=== PATIENT | female | born 1950 | race Two or more races ===

== ENCOUNTER 2017-01-26 08:48 | Day surgery (SDC) | payer OTHER, MEDICARE ==
[~2017-01-26] VITALS: Ht 160 cm; Wt 79.4 kg
[~2017-01-26 08:48] MED LIST: ACETYLCHOLINE CHLORIDE 1:100 20 MG/2 ML INTRAOCULAR KIT. ONE; AMLO5TAB2 PO; ASPI-630 PO; ASPI325T8 PO; BALANCED SALT IRRIG OPHTH SOLN 15 ML BOTTLE. ONE; CARV6.25 PO; CHONDROIT-SOD-HYALURONATE KIT. ONE; CIPROFLOXACIN 0.3% OPHTH SOLUTION 5ML BOTTLE. OS ONE; CLOP75TA57 PO; CRESTOR10 MG PO; DEXAMETHASONE SOD PHOS 4 MG/ML VIAL ONE; FURO40TA4 PO; GENTAMICIN SULFATE 80 MG/2 ML VIAL. ONE; GLYB5TAB3 PO; HYDR-965 PO; INSU100C SQ; INSU100I32 SQ; INSU100V13 SQ; INSU100V31 SQ; IV RINGERS,LACTATED 1000ML 1,000 ML IV SCH; LIDOCAINE 2% JELLY 6ML IN APPLICATOR. MM PRN; NEO/POLYMYX/DEXAMETH OPHTH OINTMENT 3.5GM TUBE. ONE; NITR0.4T SL; POTA20TA82 PO; PROPARACAINE 0.5% OPHTH SOLUTION 15ML BOTTLE. OS ONE
[2017-01-26] MEDS: PHENYLEPHRINE 2.5% OPHTH SOLUTION 2ML BOTTLE. OS SCH ×3 (09:15→09:30)
[2017-01-26] MEDS: CYCLOPENTOLATE 1% OPTH SOLUTION 2ML BOTTLE. OS SCH ×3 (09:35→09:45)
[2017-01-26] MEDS ORDERED: LIDOCAINE 2% JELLY 6ML IN APPLICATOR. MM ONE (10:15)
[2017-01-26] MEDS ORDERED: DEXAMETHASONE SOD PHOS 4 MG/ML VIAL ONE (10:21)
[2017-01-26] MEDS ORDERED: MIDAZOLAM HCL/PF 2 MG/2 ML VIAL. ONE (10:31)
--- NOTE | 2017-01-26 10:53 | PDOC4 ---
Operative Note Operative Note Operative Note PREOPERATIVE DIAGNOSIS: Cataract, LEFT EYE POSTOPERATIVE DIAGNOSIS: Cataract, left eye OPERATION: Phacoemulsification and posterior chamber intraocular lens implantation, left eye. ANESTHESIA: Topical/ local anesthesia SURGEON: Leslie Jarrett M.D. COMPLICATIONS: None. PROCEDURE: The patient was brought to the operating room. Left eye was prepped and draped in usual sterile conditions. Topical Lidocaine gel was applied to achieve topical anesthesia. left eye was prepped and draped in usual sterile conditions. Lid speculum was inserted to open the left eye. With Bard Aydin knife, 3.5 mm, limbal, clear corneal incision was placed, partial thickness at 12 o'clock position. With a keratome corneal flap was lifted and anterior chamber was entered to make 3.5 mm clear corneal incision. Viscoat was injected in the anterior chamber. With cystotome, anterior capsulorrhexis was performed without complications. Hydrodissection was done to loosen the cataractous lens from the capsule. Using phacoemulsification tip inserted into the anterior chamber, the lens was sculpted and removed in 55 seconds without any complications. The remaining of lens cortex were aspirated out using irrigation aspiration apparatus. Posterior capsule and capsulorrhexis were intact. Provisc was injected into the capsular bag to push back the posterior capsule and to deepen the chamber. Posterior chamber intraocular lens was loaded on its parking lot chauffeur and it was slipped into the capsular bag. It was rotated with Sinskey hook to position it in the center. Excess of Viscoat and Provisc were aspirated out using irrigation and aspiration apparatus. Miochol was injected to constrict the pupil to 3 mm size round pupil. BSS was injected in the anterior chamber to wash the anterior chamber. Some more BSS was injected into the corneal lip of the wound to make a watertight wound closure. More BSS was injected in the anterior chamber. The wound was checked. There was no leakage noticed. Half cc of Gentamicin and Decadron was injected sub conjunctivally in nasal inferior fornix. Lid speculum was removed. Maxitrol eye ointment was placed into the right eye. Left eye was protected with shield and the patient left the operating room in good condition. There were no complications. LESLIE JARRETT MD Jan 26, 2017 10:53
[2017-01-26] MEDS ORDERED: DEXAMETHASONE 0.1% OPHTH SOLUTION 5ML BOTTLE. OS SCH (11:00)
[2017-01-26 11:05] VITALS: BP 173/75
== END 2017-01-26 11:10 | disposition home or self-care (01) ==
LOC: SURG 08:48
PROVIDERS: ATTEND Ophthalmology
DX: E11.36 Type 2 diabetes mellitus with diabetic cataract (principal); E78.00 Pure hypercholesterolemia, unspecified; I10 Essential (primary) hypertension; Z90.710 Acquired absence of both cervix and uterus; Z90.49 Acquired absence of other specified parts of digestive tract; Z86.39 Personal history of other endocrine, nutritional and metabolic disease
CPT/HCPCS: 66984; 82962; C1780; J0171; J1100; J1580; J2250